=== PATIENT | female | born 1980 | race Hispanic/Latino ===

== ENCOUNTER 2021-06-22 14:16 | Outpatient (CLI) | payer BC | END 2021-06-22 14:17 | disposition home or self-care (01) | LOC: TBSIIMAG 14:16 | PROVIDERS: ATTEND Neurological Surgery | DX: M54.16 Radiculopathy, lumbar region (principal); M50.20 Other cervical disc displacement, unspecified cervical region; M47.816 Spondylosis without myelopathy or radiculopathy, lumbar region; M50.30 Other cervical disc degeneration, unspecified cervical region; M48.02 Spinal stenosis, cervical region | CPT/HCPCS: 72040; 72141; 72148 ==

== ENCOUNTER 2021-09-20 13:07 | Outpatient (CLI) | payer BC ==
[2021-09-20 13:59] LABS: Mean Corpuscular HGB CONC 33.3 g/dL (32.0-36.0); Mean Corpuscular Hemoglobin 30.7 pg (27.0-33.0); Mean Corpuscular Volume 92.2 fl (81.6-98.3); Mean Platelet Volume 10.8 fl (7.4-10.4); Platelet Count 218 10x3/uL (150-450); RBC Distribution Width 12.5 % (11.5-14.5); Red Blood Cell (RBC) Count 4.89 10x6/uL (3.90-5.03); White Blood Cell (WBC) Count 8.2 10x3/uL (3.5-10.5)
[2021-09-20 14:17] LABS: INR-International Normal Ratio 0.9; PTT 26.6 sec (22.0-33.0)
[2021-09-21 00:01] LABS: SARS-CoV-2 PCR by NAA Not Detected (NotDetected)
== END 2021-09-20 13:08 | disposition home or self-care (01) ==
LOC: LABBT 13:07
PROVIDERS: ATTEND Neurological Surgery
DX: Z01.812 Encounter for preprocedural laboratory examination (principal); M50.121 Cervical disc disorder at C4-C5 level with radiculopathy; Z20.822 Contact with and (suspected) exposure to COVID-19
CPT/HCPCS: 85027; 85610; 85730; U0003; U0005

== ENCOUNTER 2021-09-23 10:03 | Day surgery (SDC) | payer BC ==
[2021-09-21 14:50] VITALS: BMI 25.7
[2021-09-23] MEDS ORDERED: SUGAMMADEX SODIUM 200 MG/2 ML VIAL ONE ×2 (11:29→15:34)
[2021-09-23] MEDS ORDERED: Famotidine/PF 20 mg/2ml Vial ONE (11:29)
[2021-09-23] MEDS ORDERED: Neomycin-Polymyxin 1 ML AMP ONE (11:42)
[2021-09-23] MEDS ORDERED: Thrombin 5000 UNITS/5 ML VIAL ONE (11:42)
[2021-09-23] MEDS ORDERED: Sodium Chloride 0.9% 100 ML ONE (12:03)
[2021-09-23] MEDS ORDERED: CEFAZOLIN 2 GM VIAL ONE (12:03)
[2021-09-23] MEDS ORDERED: Midazolam HCl 2 mg/2 ml Vial ONE (12:17)
[2021-09-23] MEDS ORDERED: fentaNYL Citrate/PF 100 MCG/2 ML SYRINGE ONE ×2 (12:23→15:28)
[2021-09-23] MEDS ORDERED: Ondansetron HCl/PF 4 MG/2 ML Vial IVP PRN (15:54)
[2021-09-23] MEDS ORDERED: Promethazine HCl 25 MG/ML VIAL IM PRN (15:54)
[2021-09-23] MEDS ORDERED: Promethazine HCl 25 MG/ML VIAL IVPB PRN (15:54)
[2021-09-23] MEDS ORDERED: Meperidine HCl/PF 25 MG/ML VIAL SLOW IVP PRN (15:54)
[2021-09-23] MEDS ORDERED: Fentanyl 100 MCG/2 ML VIAL ONE (15:58)
== END 2021-09-23 17:20 | disposition home or self-care (01) ==
LOC: SDC 10:03
PROVIDERS: ATTEND Neurological Surgery
PROC: 0RG20A0 Fusion of 2 or more Cervical Vertebral Joints with Interbody Fusion Device, Anterior Approach, Anterior Column, Open Approach (ICD-10-PCS; principal; 2021-09-23)
DX: M50.121 Cervical disc disorder at C4-C5 level with radiculopathy (principal); M48.02 Spinal stenosis, cervical region; E78.00 Pure hypercholesterolemia, unspecified; G89.29 Other chronic pain; Z79.899 Other long term (current) drug therapy; Z88.1 Allergy status to other antibiotic agents; Z88.5 Allergy status to narcotic agent; Z88.8 Allergy status to other drugs, medicaments and biological substances; Z91.048 Other nonmedicinal substance allergy status
CPT/HCPCS: 76000; C1713; C1776; J2250; J3010; J3490; S0028

== ENCOUNTER 2021-11-25 09:55 | Outpatient (CLI) | payer BC | END 2021-11-25 09:56 | disposition home or self-care (01) | LOC: TBSIIMAG 09:55 | PROVIDERS: ATTEND Neurological Surgery | DX: M54.12 Radiculopathy, cervical region (principal); Z98.890 Other specified postprocedural states | CPT/HCPCS: 72040 ==

== ENCOUNTER 2023-03-20 14:59 | Outpatient (CLI) | payer BC | END 2023-03-20 15:00 | disposition home or self-care (01) | LOC: BICRAD 14:59 | PROVIDERS: ATTEND Neurological Surgery | DX: M54.12 Radiculopathy, cervical region (principal); Z98.1 Arthrodesis status | CPT/HCPCS: 72050 ==